=== PATIENT | female | born 1985 | race Asian ===

== ENCOUNTER 2020-05-04 13:54 | Outpatient (REF) | payer MEDICAID, SELFPAY ==
[2020-05-05 08:46] LABS: BV Int Neg Control Negative (Negative); BV Int Pos Control Positive (Positive)
[2020-05-05 09:50] LABS: CT PCR NOT DETECTED (Not Detect.); NG PCR NOT DETECTED (Not Detect.)
== END 2020-05-04 13:55 | disposition home or self-care (01) ==
LOC: HO.LAB 13:54
PROVIDERS: PCP Nurse Practitioner Family; Visit Provider Obstetrics & Gynecology
DX: Z01.419 Encounter for gynecological examination (general) (routine) without abnormal findings (principal); J45.909 Unspecified asthma, uncomplicated; A60.9 Anogenital herpesviral infection, unspecified
CPT/HCPCS: 87480; 87491; 87510; 87591; 87660

== ENCOUNTER → 2021-05-06 13:25 | Outpatient (BNVA) | payer MEDICAID, SELFPAY | PROVIDERS: PCP Nurse Practitioner Family; Visit Provider Advanced Practice Midwife ==

== ENCOUNTER 2021-11-02 05:04 | Emergency (ER) | payer MEDICAID, SELFPAY ==
[2021-11-02 05:52] VITALS: BP 124/75; PULSE 126; RESP 22; TEMP 39.2; O2SAT 99; BMI 32.9
[2021-11-02 06:11] LABS: IDNOW Serial# 16C4AD1C; Influenza A Positive (Negative); Influenza B2 Negative (Negative)
[2021-11-02 06:12] LABS: COVID-19 Test Negative (Negative); IDNOW Serial# 55D5AD1C
[2021-11-02] MEDS: Ibuprofen 600 MG TABLET PO (06:50)
--- NOTE | 2021-11-02 06:50 | ED.GENADULT ---
HPI - General Adult General Chief complaint: General Medical Stated complaint: flu like symptoms Time Seen by Provider: 11/02/21 06:38 Source: patient and family Mode of arrival: ambulatory Limitations: no limitations History of Present Illness MD complaint: flu like symptoms Onset (ago): day(s) (since this ) Location: head, back, upper extremity and lower extremity Radiation: non-radiation Severity: moderate Quality: aching and dull Pain Consistency: constant Relieving factors: other (some relief with OTC medications took tylenol yesterday ) Exacerbating factors: none Associated symptoms: fever/chills, headaches, loss of appetite and malaise Treatments prior to arrival: none Related Data Home Medications Medication Instructions Recorded Confirmed levonorgestrel 20 mcg/24 hours (7 INTRAUTERINE 05/04/20 yrs) 52 mg intrauterine device (Mirena) montelukast 10 mg tablet 10 mg PO DAILY 05/04/20 (Singulair) fexofenadine 180 mg tablet 180 mg PO DAILY 05/06/21 (Lizeth Allergy) levocetirizine 5 mg tablet (Xyzal) 5 mg PO DAILY 05/06/21 Previous Rx's Medication Instructions Recorded valacyclovir 500 mg tablet 1,000 mg PO ONCE 3 Days #15 tab 05/06/21 (Valtrex) Allergies Allergy/AdvReac Type Severity Reaction Status Date / Time latex [LATEX] Allergy Unknown HIVES Verified 05/06/21 13:58 environmental Allergy Unknown congestion Uncoded 05/04/20 14:03 Review of Systems Review of Systems: Constitutional : positive Fever, positive Chills, positive fatigue, positive Malaise ENT/Mouth : positive sore throat, positive runny nose Eyes: No Discharge Cardiovascular : No Chest Pain, No SOB Respiratory : No Cough, No Sputum Gastrointestinal : No Nausea, No Vomiting, No Diarrhea Genitourinary : No Dysuria, No Urinary Frequency Musculoskeletal : positive Myalgia Skin : No rash Neuro : pos Headache PMFSH Past Medical History Attestation statement: The following information was validated with the patient. Medical History Anogenital herpes simplex virus (HSV) infection Asthma Surgical History Hx of section Family History Family History Maternal Grandmother Cervical cancer Social History Social History (Updated 11/02/21 @ 06:52 by Susu Horn DO) Alcohol intake: never Patient Tobacco Use Status: Never used Tobacco Advance Directives: No Advance Directives Information Provided: Yes Sexual orientation: Straight/Heterosexual Gender identity: Female Physical Exam ED Vital Signs: Vital Signs - 24 hr 11/02/21 05:52 Temperature 102.6 F H Pulse Rate 126 H Respiratory Rate 22 H Blood Pressure 124/75 Pulse Oximetry 99 BMI result Body Mass Index 32.9 Appearance: Alert. Oriented X3. No acute distress. Eyes: Pupils equal, round and reactive to light. ENT: Pharynx normal. MMM Neck: Normal inspection. Neck supple. CVS: tachycardic heart rate and rhythm. Pulses normal. Respiratory: No respiratory distress. Breath sounds normal. Abdomen: Soft and nontender. Skin: Skin warm and dry. Normal skin color. Normal skin turgor. Extremities: No lower extremity edema. Neuro: Oriented X 3. No motor deficit. No sensory deficit. Medical Decision Making MDM Narrative Medical decision making narrative: 35 yo female wtih asthma here with several days of not feeling well has clear lungs, 99% on RA, not treating fevers at home - + for flu A able to tolerate PO, needs anti pyretic out of window for tamiflu discussed tylenol and motrin use at home. tachycardia due to fevers no signs of dehydration on exam. Lab Data Labs: Lab Results 11/02/21 11/02/21 Range/Units 05:36 05:36 COVID-19 (EULOGIO) Negative (Negative) COVID-19 Clin Com See Note Influenza Type A (RADHA) Positive A (Negative) Influenza Type B (RADHA) Negative (Negative) Influenza A & B Note See Note Discharge Plan Discharge Clinical Impression: Influenza A Patient Disposition: Home, Self-Care Instructions: Influenza (ED) Additional Instructions: return to ED for any worsening symptoms or concerns tylenol every 4 hours for fever no more than 3 Grams in one day ibuprofen every 6 hours - can take up to 600mg a dose Prescriptions: No Action fexofenadine [Lizeth Allergy] 180 mg tablet 180 mg PO DAILY 0RF levocetirizine [Xyzal] 5 mg tablet 5 mg PO DAILY 0RF valacyclovir [Valtrex] 500 mg tablet 1,000 mg PO ONCE 3 Days Qty: 15 1RF Rx Instructions: take with onset on of symptoms, take for three days, may repeat dosing per episode prn montelukast [Singulair] 10 mg tablet 10 mg PO DAILY 0RF Mirena 20 mcg/24 hours (5 yrs) 52 mg intrauterine device intrauterine 0RF Stand Alone Forms: Work/School Release
== END 2021-11-02 06:53 | disposition home or self-care (01) ==
PROVIDERS: Emergency Provider Emergency Medicine
DX: J10.1 Influenza due to other identified influenza virus with other respiratory manifestations (principal); J45.909 Unspecified asthma, uncomplicated; Z20.822 Contact with and (suspected) exposure to COVID-19
CPT/HCPCS: 87502; 87635; 99283

== ENCOUNTER 2023-07-27 00:26 | Emergency (ER) | payer OTHER, SELFPAY ==
[2023-07-27 00:34] VITALS: BP 144/85; PULSE 87; RESP 18; TEMP 36.2; O2SAT 99; BMI 32.1
[2023-07-27 01:02] LABS: MANUAL DIFF FLAG NO
[2023-07-27 01:03] LABS: Basophils Percent Auto 0.1 % (0-2); Eosinophils Absolute Auto 0.2 X10*3/uL (0.0-0.4); Eosinophils Percent Auto 1.1 % (0-4); Hematocrit 43.5 % (37.0-47.0); Hemoglobin 14.4 g/dl (12.0-16.0); Imm Gran Abs Auto 0.05 X10*3/uL (0.00-0.03); Imm Gran Pct Auto 0.3 % (0.0-0.4); Lymphocytes Absolute Auto 0.6 X10*3/uL (1.2-4.9); Lymphocytes Percent Auto 3.8 % (20-40); Mean Corpuscular HGB Conc 33.1 g/dl (31.0-35.0); Mean Corpuscular Hemoglobin 28.5 pg (27.0-33.0); Mean Corpuscular Volume 86.1 fL (80.0-98.0); Mean Platelet Volume 10.1 fL (9.4-12.3); Monocytes Absolute Auto 0.8 X10*3/uL (0.1-1.2); Monocytes Percent Auto 5.5 % (2-11); Neutrophils Absolute Auto 13.2 x10*3/uL (2.0-8.3); Neutrophils Percent Auto 89.2 % (45-73); Platelet Count 322 X10*3/uL (160-400); Red Blood Count 5.05 X10*6/uL (4.20-5.50); Red Cell Distribution Width 12.9 % (11.0-16.0); White Blood Count 14.8 X10*3/uL (4.8-10.8)
[2023-07-27 01:18] LABS: Alanine Aminotransferase 25 U/L (0-31); Alkaline Phosphatase 52 U/L (39-117); Anion Gap 15 (12-20); Aspartate Amino Transferase 28 U/L (5-31); Bilirubin Direct 0.3 mg/dL (0.0-0.5); Bilirubin Total 0.8 mg/dL (0.0-1.0); Blood Urea Nitrogen 21 mg/dL (9-16); Calcium 10.1 mg/dL (8.4-10.2); Carbon Dioxide 21 mmol/L (22-29); Chloride 107 mmol/L (96-108); Estimated Glomerular Filt Rate > 60; Glucose Random 118 mg/dL (60-115); Lipase 22 U/L (8-78); Potassium 4.3 mmol/L (3.3-5.1); Sodium 139 mmol/L (135-145); Total Protein 8.6 g/dL (6.5-8.0)
[2023-07-27 04:00] VITALS: BP 117/74; PULSE 75; RESP 16; TEMP 37; O2SAT 98
--- NOTE | 2023-07-27 04:20 | ED_ITS ---
HPI - Nausea/Vomiting/Diarrhea General Chief complaint: Nausea/Vomiting/Diarrhea Stated complaint: food poisoning ? Time Seen by Provider: 07/27/23 04:19 Source: patient Mode of arrival: ambulatory Limitations: no limitations History of Present Illness HPI Narrative: Patient 2 hours after having [place] lunch started having abdominal cramps nausea vomiting and diarrhea at multiple episodes more than 15 each on the family member sick they had the same food patient also had low-grade fever with chills no urinary symptoms has muscle spasm no upper respiratory symptoms Related Data Home Medications Medication Instructions Recorded Confirmed levonorgestrel 21 mcg/24 hours (8 intrauterine 05/04/20 yrs) 52 mg intrauterine device (Mirena) montelukast 10 mg tablet 10 mg PO DAILY 05/04/20 (Singulair) fexofenadine 180 mg tablet 180 mg PO DAILY 05/06/21 (Lizeth Allergy) levocetirizine 5 mg tablet (Xyzal) 5 mg PO DAILY 05/06/21 Previous Rx's Medication Instructions Recorded valacyclovir 500 mg tablet 1,000 mg (2 x 500 mg) PO ONCE 3 05/06/21 (Valtrex) days #15 tabs loperamide 2 mg tablet (Imodium 2 mg PO Q6H PRN loose stool #10 07/27/23 A-D) tabs ondansetron 4 mg disintegrating 4 mg PO Q6-8H PRN nausea and 07/27/23 tablet vomiting #10 tabs Allergies Allergy/AdvReac Type Severity Reaction Status Date / Time latex [LATEX] Allergy Unknown HIVES Verified 05/06/21 13:58 environmental Allergy Unknown congestion Uncoded 05/04/20 14:03 Review of Systems 2 Review of Systems: Yes all other systems are reviewed and are negative PMFSH Past Medical History Medical History Anogenital herpes simplex virus (HSV) infection Asthma Surgical History Hx of section Family History Family History Maternal Grandmother Cervical cancer Social History Social History Alcohol intake: never Patient Tobacco Use Status: Never used Tobacco Advance Directives: No Advance Directives Information Provided: Yes Sexual orientation: Straight/Heterosexual Gender identity: Female Physical Exam 2 Vital Signs: Vital Signs: Last Vital Signs Temp 98.6 F 07/27/23 04:00 Pulse 75 07/27/23 04:00 Resp 16 07/27/23 04:00 BP 117/74 07/27/23 04:00 Pulse Ox 98 07/27/23 04:00 O2 Del Method Room Air 07/27/23 04:00 BMI result Body Mass Index 32.1 Appearance: Alert. Oriented X3. No acute distress. Eyes: No pallor or icterus ENT: Pharynx normal. Oral Mucosa dry Neck: Normal inspection. Neck supple. CVS: Normal heart rate and rhythm. Pulses normal. Respiratory: No respiratory distress. Equal air entry bilateral, Abdomen: Soft and nontender. Bowel sounds are present, no mass palpable, no CVA tenderness Skin: Skin warm and dry. Normal skin color. Normal skin turgor. Extremities: No lower extremity edema. No calf tenderness Neuro: Oriented X 3. Medications Administered Discontinued Medications Generic Name Dose Route Start Last Admin Trade Name Freq PRN Reason Stop Dose Admin Sodium Chloride 1,000 mls @ 999 mls/hr 07/27/23 04:44 07/27/23 05:57 Ns IV 07/27/23 05:44 Infused .Q1H1M ONE Infusion Ketorolac Tromethamine 30 mg 07/27/23 04:44 07/27/23 04:57 Ketorolac Tromethamine 30 Mg/Ml Vial IVPUSH 07/27/23 04:45 30 mg ONCE ONE Administration Loperamide HCl 2 mg 07/27/23 04:44 07/27/23 04:57 Loperamide Hcl 2 Mg Capsule PO 07/27/23 04:45 2 mg ONCE ONE Administration Ondansetron HCl 4 mg 07/27/23 04:44 07/27/23 04:56 Ondansetron Hcl 4 Mg/2 Ml Vial IVPUSH 07/27/23 04:45 4 mg ONCE ONE Administration Medical Decision Making Medical Decision Making [facility] Narrative: Patient with acute gastroenteritis likely from food passing from Clostridium perfringens symptoms self-limited feeling much better at this time taking p.o. fluids received IV fluids in the ER labs are stable COVID negative Differential Diagnosis Differential Diagnoses: The differential diagnosis associated with the presentation includes Acute gastroenteritis/food poisoning/viral Admission/Observation Consideration of admission/observation: Escalation of care including admission/observation considered Lab Data MDM Lab Attestation statement: I reviewed the patient's lab results. 07/27/23 00:58 07/27/23 00:58 Labs: Lab Results 07/27/23 07/27/23 07/27/23 Range/Units 00:58 04:25 05:01 WBC 14.8 H (4.8-10.8) X10*3/uL RBC 5.05 (4.20-5.50) X10*6/uL Hgb 14.4 (12.0-16.0) g/dl Hct 43.5 (37.0-47.0) % MCV 86.1 (80.0-98.0) fL MCH 28.5 (27.0-33.0) pg MCHC 33.1 (31.0-35.0) g/dl RDW 12.9 (11.0-16.0) % Plt Count 322 (160-400) X10*3/uL MPV 10.1 (9.4-12.3) fL Immature Gran % (Auto) 0.3 (0.0-0.4) % Neut % (Auto) 89.2 H (45-73) % Lymph % (Auto) 3.8 L (20-40) % [place] % (Auto) 5.5 (2-11) % Eos % (Auto) 1.1 (0-4) % Baso % (Auto) 0.1 (0-2) % Lymph # (Auto) 0.6 L (1.2-4.9) X10*3/uL [place] # (Auto) 0.8 (0.1-1.2) X10*3/uL Eos # (Auto) 0.2 (0.0-0.4) X10*3/uL Baso # (Auto) 0.0 (0.0-0.2) X10*3/uL Abs Immat Gran (auto) 0.05 H (0.00-0.03) X10*3/uL Absolute Neuts (auto) 13.2 H (2.0-8.3) x10*3/uL Absolute Nucleated RBC 0.000 (0.0-0.012) X10*3/uL Nucleated RBC % (auto) 0.0 (0.0-0.2) /100WBC Sodium 139 (135-145) mmol/L Potassium 4.3 (3.3-5.1) mmol/L Chloride 107 (96-108) mmol/L Carbon Dioxide 21 L (22-29) mmol/L Anion Gap 15 (12-20) BUN 21 H (9-16) mg/dL Creatinine 0.81 (0.5-1.4) mg/dL Estim Creat Clear Calc 91.0 Estimated GFR > 60 Random Glucose 118 H (60-115) mg/dL Calcium 10.1 (8.4-10.2) mg/dL Total Bilirubin 0.8 (0.0-1.0) mg/dL Direct Bilirubin 0.3 (0.0-0.5) mg/dL AST 28 (5-31) U/L ALT 25 (0-31) U/L Alkaline Phosphatase 52 (39-117) U/L Total Protein 8.6 H (6.5-8.0) g/dL Albumin 5.0 (3.5-5.0) g/dL Lipase 22 (8-78) U/L Urine Color Yellow Urine Appearance Clear Urine pH 6.0 (5.0-9.0) Ur Specific [place] >= 1.030 H (1.005-1.025) Urine Protein Negative (Neg-Trace) mg/dL Urine Glucose (UA) Negative (Negative) mg/dL Urine Ketones Trace (Negative) mg/dL Urine Blood Negative (Negative) Urine Nitrite Negative (Negative) Ur Leukocyte Esterase Negative (Negative) Urine Test NEGATIVE (NEGATIVE) COVID-19 (EULOGIO) Negative (Negative) COVID-19 Clin Com See Note Discharge Plan Discharge Clinical Impression: Gastroenteritis, Food poisoning Patient Disposition: Home, Self-Care Instructions: Gastroenteritis (ED), Food Poisoning (ED) Additional Instructions: Drink plenty of fluids Medicine for nausea as prescribed Imodium for severe diarrhea do not take more than 3-4 tablets a day Followup with PCP if not better Prescriptions: New ondansetron 4 mg tablet,disintegrating 4 mg PO Q6-8H PRN (Reason: nausea and vomiting) Qty: 10 0RF loperamide [Imodium A-D] 2 mg tablet 2 mg PO Q6H PRN (Reason: loose stool) Qty: 10 0RF No Action fexofenadine [Lizeth Allergy] 180 mg tablet 180 mg PO DAILY levocetirizine [Xyzal] 5 mg tablet 5 mg PO DAILY valacyclovir [Valtrex] 500 mg tablet 1,000 mg PO ONCE 3 Days Qty: 15 1RF Rx Instructions: take with onset on of symptoms, take for three days, may repeat dosing per episode prn montelukast [Singulair] 10 mg tablet 10 mg PO DAILY Mirena 20 mcg/24 hours (5 yrs) 52 mg intrauterine device intrauterine
[2023-07-27 04:37] LABS: Appearance Urine Clear; Color Urine Yellow; Glucose Urine UA Negative (Negative); Leukocyte Esterase Urine Negative (Negative); Nitrite Urine Negative (Negative); Specific Gravity - Urine >= 1.030 (1.005-1.025); Urine Blood Negative (Negative); Urine Ketones Trace mg/dL (Negative); Urine Protein Negative (Neg-Trace)
[2023-07-27 04:39] LABS: UPreg QC Valid YES; Urine Pregnancy NEGATIVE (NEGATIVE)
[2023-07-27] MEDS: ondansetron HCL 4 MG/2 ML VIAL IVPUSH (04:56)
[2023-07-27] MEDS: 0.9 % Sodium Chloride 1,000 ML 999 ML IV (04:56)
[2023-07-27] MEDS: Ketorolac Tromethamine 30 MG/ML VIAL IVPUSH (04:57)
[2023-07-27] MEDS: Loperamide HCl 2 MG CAPSULE PO (04:57)
[2023-07-27 05:19] LABS: COVID-19 Test Negative (Negative); IDNOW Serial# 152EDE1D
--- NOTE | 2023-07-27 06:38 | PC.NURSE ---
Pt given nika david and crackers for PO challenge.
== END 2023-07-27 07:02 | disposition home or self-care (01) ==
PROVIDERS: Emergency Provider Internal Medicine
DX: K52.9 Noninfective gastroenteritis and colitis, unspecified (principal); A05.9 Bacterial foodborne intoxication, unspecified; Z11.52 Encounter for screening for COVID-19
CPT/HCPCS: 36415; 80053; 81003; 81025; 82248; 83690; 85025; 87635; 96361; 96374; 96375; 99284; 99285; J1885; J2405

== ENCOUNTER 2024-11-26 15:11 | Emergency (ER) | payer OTHER, SELFPAY ==
[2024-11-26] VITALS (7 sets, daily range): BP systolic 109–123; BP diastolic 68–78; PULSE 76–88; RESP 16–18; TEMP 36.9; O2SAT 98–100; BMI 32.0
--- NOTE | ~2024-11-26 | XR_ITS ---
EXAMINATION: XR CHEST CLINICAL INFORMATION: short of breath COMPARISON: 08/10/2017. TECHNIQUE: 2 views of the chest were obtained. FINDINGS: The cardiac, hilar, and mediastinal contours are normal. The lungs are clear bilaterally. There is no pneumothorax or pleural effusion. There is no focal osseous or soft tissue abnormality. XR/XR chest 2V IMPRESSION: No active pulmonary disease. Electronically signed by: Jm Key MD 11/26/2024 04:39 PM EDT
--- NOTE | 2024-11-26 16:15 | ED_ITS ---
HPI - General Adult General Chief complaint: Weakness Stated complaint: Passed out earlier Time Seen by Provider: 11/26/24 20:12 Source: patient Mode of arrival: ambulatory Limitations: no limitations History of Present Illness ED Provider: HPI narrative: Patient's history of anxiety comes here as [place] earlier fell lightheaded dizzy almost passed out no chest pain no palpitation also patient complaining of rectal beats for last few weeks which is bright red plan to sigmoidoscopy no history of hemorrhoids no history of similar episode in the past Related Data Home Medications ?Medication ?Instructions ?Recorded ?Confirmed levonorgestrel 21 mcg/24 hr (up to intrauterine 05/04/20 8 years) 52 mg intrauterine device (Mirena) montelukast 10 mg tablet 10 mg PO DAILY 05/04/20 (Singulair) fexofenadine 180 mg tablet 180 mg PO DAILY 05/06/21 (Lizeth Allergy) levocetirizine 5 mg tablet (Xyzal) 5 mg PO DAILY 05/06/21 Previous Rx's ?Medication ?Instructions ?Recorded valacyclovir 500 mg tablet 1,000 mg (2 x 500 mg) PO ONCE 3 05/06/21 (Valtrex) days #15 tabs loperamide 2 mg tablet (Imodium 2 mg PO Q6H PRN loose stool #10 07/27/23 A-D) tabs ondansetron 4 mg disintegrating 4 mg PO Q6-8H PRN nausea and 07/27/23 tablet vomiting #10 tabs hydrocortisone acetate 25 mg 25 mg OK BID #12 ea 11/26/24 rectal suppository (Anusol-HC) Allergies Allergy/AdvReac Type Severity Reaction Status Date / Time latex [LATEX] Allergy Unknown HIVES Verified 11/26/24 16:17 environmental Allergy Unknown congestion Uncoded 05/04/20 14:03 Review of Systems 2 Review of Systems: Yes all other systems are reviewed and are negative PMFSH Past Medical History Medical History Anogenital herpes simplex virus (HSV) infection Asthma Surgical History Hx of section Family History Family History Maternal Grandmother Cervical cancer Social History Social History Alcohol intake: current Alcohol intake frequency: 0-2 drinks per day Patient Tobacco Use Status: Never used Tobacco Use of substances other than those prescribed or required for medical reasons: No Advance Directives: No Advance Directives Information Provided: No Do you have a plan to hurt others: No Plan Patient : No Sexual orientation: Straight/Heterosexual Gender identity: Female Physical Exam ED Vital Signs: Vital Signs - 24 hr 11/26/24 16:14 11/26/24 19:24 11/26/24 21:13 Temperature 98.4 F Pulse Rate 88 76 76 Respiratory Rate 16 18 Blood Pressure 121/77 114/73 112/68 Pulse Oximetry 100 100 Oxygen Delivery Method Room Air Room Air 11/26/24 21:15 11/26/24 21:16 11/26/24 21:54 Temperature Pulse Rate 76 88 88 Respiratory Rate 16 Blood Pressure 123/74 109/78 109/78 Pulse Oximetry 98 Oxygen Delivery Method Room Air 11/26/24 21:56 Temperature 98.4 F Pulse Rate 88 Respiratory Rate 16 Blood Pressure 109/78 Pulse Oximetry 98 Oxygen Delivery Method Room Air BMI result Body Mass Index 32.0 Appearance: Alert. Oriented X3. No acute distress. Eyes: PERRLA, No Nystagmus ENT: Pharynx normal. Oral Mucosa moist Neck: Normal inspection. Neck supple. CVS: Normal heart rate and rhythm. Pulses normal. Respiratory: No respiratory distress. Equal air entry bilateral, no wheezing/rales/rhonchi Abdomen: Soft and nontender. Bowel sounds are present, no mass palpable, no CVA tenderness Skin: Skin warm and dry. Normal skin color. Normal skin turgor. Extremities: No lower extremity edema. No calf tenderness Neuro: Oriented X 3. No motor deficit. No sensory deficit.No cerebellar signs , cranial nerves II-XII intact Course Course Course Narrative: This is a Rapid Medical Examination (RME) performed by Brenda Peñaloza PA-C in triage. Full HPI, ROS, assessment and treatment plan per primary provider in the Main ED. Hx: 38 yo F here w/ BRBPR intermittent x2 weeks. denies abd pain. 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 no head strike. LMP 1 wk ago. has an IUD. no recent travel. called PCP who was concerned for anemia, sent here. PE/vitals: vitals stable Plan: labs, ekg, cxr Medications Administered Discontinued Medications Generic Name Dose Route Start Last Admin Trade Name Julieta PRN Reason Stop Dose Admin Acetaminophen 650 mg 11/26/24 20:04 11/26/24 20:19 Acetaminophen 325 Mg Tablet PO 11/26/24 20:05 650 mg ONCE ONE Administration Meclizine HCl 25 mg 11/26/24 20:28 11/26/24 20:56 Meclizine Hcl 25 Mg Tablet PO 11/26/24 20:29 25 mg ONCE ONE Administration Medical Decision Making Medical Decision Making [facility] Narrative: Patient with multiple complaints workup essentially negative orthostatics are no likely patient has vasovagal episode advised to drink plenty of fluids will prescribe Anusol suppository for hemorrhoids Lab Data [facility] Lab Attestation statement: I reviewed the patient's lab results. 11/26/24 16:42 11/26/24 16:42 Labs: Lab Results 11/26/24 11/26/24 Range/Units 16:42 16:51 WBC 15.2 H (4.8-10.8) X10*3/uL RBC 4.84 (4.20-5.50) X10*6/uL Hgb 14.0 (12.0-16.0) g/dl Hct 42.3 (37.0-47.0) % MCV 87.4 (80.0-98.0) fL MCH 28.9 (27.0-33.0) pg MCHC 33.1 (31.0-35.0) g/dl RDW 12.7 (11.0-16.0) % Plt Count 256 (160-400) X10*3/uL MPV 10.5 (9.4-12.3) fL Immature Gran % (Auto) 0.5 H (0.0-0.4) % Neut % (Auto) 85.2 H (45-73) % Lymph % (Auto) 4.7 L (20-40) % [place] % (Auto) 8.9 (2-11) % Eos % (Auto) 0.5 (0-4) % Baso % (Auto) 0.2 (0-2) % Lymph # (Auto) 0.7 L (1.2-4.9) X10*3/uL [place] # (Auto) 1.4 H (0.1-1.2) X10*3/uL Eos # (Auto) 0.1 (0.0-0.4) X10*3/uL Baso # (Auto) 0.0 (0.0-0.2) X10*3/uL Abs Immat Gran (auto) 0.07 H (0.00-0.03) X10*3/uL Absolute Neuts (auto) 13.0 H (2.0-8.3) x10*3/uL Absolute Nucleated RBC 0.000 (0.0-0.012) X10*3/uL Nucleated RBC % (auto) 0.0 (0.0-0.2) /100WBC Sodium 141 (135-145) mmol/L Potassium 4.1 (3.3-5.1) mmol/L Chloride 105 (96-108) mmol/L Carbon Dioxide 27 (22-29) mmol/L Anion Gap 13 (12-20) BUN 16 (9-16) mg/dL Creatinine 0.76 (0.5-1.4) mg/dL Estim Creat Clear Calc 99.8 Estimated GFR > 60 Random Glucose 93 (60-115) mg/dL Calcium 9.3 D (8.4-10.2) mg/dL Magnesium 1.8 (1.6-2.6) mg/dL Total Bilirubin 0.6 (0.0-1.0) mg/dL AST 22 (5-31) U/L ALT 19 (0-31) U/L Alkaline Phosphatase 46 (39-117) U/L Troponin I High Sens < 2.7 (<3.5-17.0) ng/L Total Protein 7.7 (6.5-8.0) g/dL Albumin 4.9 (3.5-5.0) g/dL TSH 1.64 (0.32-4.0) uIU/mL Beta HCG, Quant < 2 mIU/mL Urine Color Yellow Urine Appearance Clear Urine pH 6.5 (5.0-9.0) Ur Specific [place] 1.020 (1.005-1.025) Urine Protein Negative (Neg-Trace) mg/dL Urine Glucose (UA) Negative (Negative) mg/dL Urine Ketones Trace (Negative) mg/dL Urine Blood Negative (Negative) Urine Nitrite Negative (Negative) Ur Leukocyte Esterase Negative (Negative) Urine Test NEGATIVE (NEGATIVE) Influenza Type A (PCR) NEGATIVE (Negative) Influenza Type B (PCR) NEGATIVE (Negative) RSV RNA Qual (PCR) NEGATIVE (Negative) SARS-CoV-2 RNA (RT-PCR) NEGATIVE (Negative) Independent Interpretation I performed an independent interpretation of an: EKG Interpretation: Normal sinus rhythm heart rate 85 beats per minute normal intervals normal axis no acute STT wave changes no acute ischemia Discharge Plan Discharge Clinical Impression: Vasovagal near syncope, Hemorrhoids Patient Disposition: Home, Self-Care Instructions: Hemorrhoids (ED), Near Syncope (ED) Additional Instructions: Drink plenty of fluids Likely have hemorrhoids causing the blood in the stool Use suppositories twice a day as prescribed Follow with your PCP Prescriptions: New hydrocortisone acetate [Anusol-HC] 25 mg suppository 25 mg OK BID Qty: 12 0RF No Action ondansetron 4 mg tablet,disintegrating 4 mg PO Q6-8H PRN (Reason: nausea and vomiting) Qty: 10 0RF loperamide [Imodium A-D] 2 mg tablet 2 mg PO Q6H PRN (Reason: loose stool) Qty: 10 0RF fexofenadine [Lizeth Allergy] 180 mg tablet 180 mg PO DAILY levocetirizine [Xyzal] 5 mg tablet 5 mg PO DAILY valacyclovir [Valtrex] 500 mg tablet 1,000 mg PO ONCE 3 Days Qty: 15 1RF Rx Instructions: take with onset on of symptoms, take for three days, may repeat dosing per episode prn montelukast [Singulair] 10 mg tablet 10 mg PO DAILY Mirena 20 mcg/24 hours (5 yrs) 52 mg intrauterine device intrauterine Interventions: ED Discharge Assessment Last Done: 11/26/24 21:56 Discharge Date/Time: 11/26/24 22:00 Print Language: [place]
--- NOTE | 2024-11-26 16:19 | ECG_ITS ---
Test Reason : SYNCOPE Blood Pressure : */* mmHG Vent. Rate : 85 BPM Atrial Rate : 85 BPM P-R Int : 134 ms QRS Dur : 76 ms QT Int : 358 ms P-R-T Axes : 58 56 21 degrees QTcB Int : 426 ms Normal sinus rhythm Normal ECG No previous ECGs available Referred By: Krysten Peñaloza Electronically Signed By: RAKESH AGUIRRE MD
[2024-11-26 16:50] LABS: MANUAL DIFF FLAG NO
[2024-11-26 16:52] LABS: Basophils Percent Auto 0.2 % (0-2); Eosinophils Absolute Auto 0.1 X10*3/uL (0.0-0.4); Eosinophils Percent Auto 0.5 % (0-4); Hematocrit 42.3 % (37.0-47.0); Imm Gran Abs Auto 0.07 X10*3/uL (0.00-0.03); Imm Gran Pct Auto 0.5 % (0.0-0.4); Lymphocytes Absolute Auto 0.7 X10*3/uL (1.2-4.9); Lymphocytes Percent Auto 4.7 % (20-40); Mean Corpuscular HGB Conc 33.1 g/dl (31.0-35.0); Mean Corpuscular Hemoglobin 28.9 pg (27.0-33.0); Mean Corpuscular Volume 87.4 fL (80.0-98.0); Mean Platelet Volume 10.5 fL (9.4-12.3); Monocytes Absolute Auto 1.4 X10*3/uL (0.1-1.2); Monocytes Percent Auto 8.9 % (2-11); Neutrophils Percent Auto 85.2 % (45-73); Platelet Count 256 X10*3/uL (160-400); Red Blood Count 4.84 X10*6/uL (4.20-5.50); Red Cell Distribution Width 12.7 % (11.0-16.0); White Blood Count 15.2 X10*3/uL (4.8-10.8)
[2024-11-26 17:00] LABS: Appearance Urine Clear; Color Urine Yellow; Glucose Urine UA Negative (Negative); Leukocyte Esterase Urine Negative (Negative); Nitrite Urine Negative (Negative); PH 6.5 (5.0-9.0); Urine Blood Negative (Negative); Urine Ketones Trace mg/dL (Negative); Urine Protein Negative (Neg-Trace)
[2024-11-26 17:02] LABS: UPreg QC Valid YES; Urine Pregnancy NEGATIVE (NEGATIVE)
[2024-11-26 17:05] LABS: Alanine Aminotransferase 19 U/L (0-31); Albumin Level 4.9 g/dL (3.5-5.0); Alkaline Phosphatase 46 U/L (39-117); Anion Gap 13 (12-20); Aspartate Amino Transferase 22 U/L (5-31); Bilirubin Total 0.6 mg/dL (0.0-1.0); Blood Urea Nitrogen 16 mg/dL (9-16); Calcium 9.3 mg/dL (8.4-10.2); Carbon Dioxide 27 mmol/L (22-29); Chloride 105 mmol/L (96-108); Creatinine Clr Calc Pharmacy 99.8; Estimated Glomerular Filt Rate > 60; Glucose Random 93 mg/dL (60-115); Magnesium 1.8 mg/dL (1.6-2.6); Potassium 4.1 mmol/L (3.3-5.1); Sodium 141 mmol/L (135-145); Total Protein 7.7 g/dL (6.5-8.0)
[2024-11-26 17:13] LABS: Troponin-I High Sensitivity < 2.7 ng/L (<3.5-17.0)
[2024-11-26 17:26] LABS: HCG Quantitative < 2 mIU/mL; TSH reflex Free T4 1.64 uIU/mL (0.32-4.0)
[2024-11-26 17:37] LABS: Influenza A PCR NEGATIVE (Negative); Influenza B PCR NEGATIVE (Negative); Resp Syncy Virus RNA Qual PCR NEGATIVE (Negative); SARS COV2 PCR INHOUSE NEGATIVE (Negative)
[2024-11-26] MEDS: Acetaminophen 325 MG TABLET 650 MG PO (20:19)
--- NOTE | 2024-11-26 20:32 | PC.NURSE ---
38 yo F presents to ED c/o +dizziness x3 weeks, otherwise appears stable, A&Ox4, speaking in complete sentences, respirations even and unlabored, VSS, no pertinent medical hx reported, dispo pending
[2024-11-26] MEDS: Meclizine HCl 25 MG TABLET PO (20:56)
== END 2024-11-26 22:00 | disposition home or self-care (01) ==
PROVIDERS: Physician Assistant Medical; Emergency Provider Internal Medicine; PCP Physician Assistant
DX: R55 Syncope and collapse (principal); K64.9 Unspecified hemorrhoids; K62.5 Hemorrhage of anus and rectum; Z03.818 Encounter for observation for suspected exposure to other biological agents ruled out
CPT/HCPCS: 0241U; 36415; 71046; 80053; 81003; 81025; 83735; 84443; 84484; 84702; 85025; 93005; 99283; 99285

== ENCOUNTER → 2024-11-26 16:19 | Outpatient (BNV) | payer OTHER, SELFPAY | PROVIDERS: PCP Physician Assistant; Visit Provider Radiology Diagnostic Radiology | DX: R06.02 Shortness of breath (principal) | CPT/HCPCS: 71046 ==

== ENCOUNTER → 2024-11-26 16:19 | Outpatient (BNV) | payer OTHER, SELFPAY | PROVIDERS: Emergency Provider Internal Medicine; PCP Physician Assistant; Visit Provider Internal Medicine Cardiovascular Disease | DX: R55 Syncope and collapse (principal) | CPT/HCPCS: 93010 ==